=== PATIENT | female | born 1975 | race Caucasian/White ===

== ENCOUNTER 2017-11-15 10:46 | Emergency (ER) | payer OTHER | END 2017-11-15 11:35 | disposition home or self-care (01) | LOC: E/R 10:46 | DX: J02.9 Acute pharyngitis, unspecified (principal); H92.03 Otalgia, bilateral; J30.9 Allergic rhinitis, unspecified; R53.83 Other fatigue | CPT/HCPCS: 99282; Z7502 ==

== ENCOUNTER 2017-11-29 06:55 | Emergency (ER) | payer OTHER ==
[2017-11-29] MEDS: IBUPROFEN 200 MG TAB PO (07:09)
== END 2017-11-29 07:38 | disposition home or self-care (01) ==
LOC: FTE 06:55
DX: J06.9 Acute upper respiratory infection, unspecified (principal)
CPT/HCPCS: 71045; 99283

== ENCOUNTER 2019-01-01 18:17 | Emergency (ER) | payer SELFPAY, OTHER ==
[2019-01-02 00:51] LABS: URINE BLOOD (Dip) POC Negative (NEGATIVE); URINE GLUCOSE (Dip) POC Negative (NEGATIVE); URINE KETONES (Dip) POC 1+ (NEGATIVE); URINE LEUKOCYTE EST (Dip) POC Negative (NEGATIVE); URINE NITRITE (Dip) POC Negative (NEGATIVE); URINE TOTAL PROTEIN POC Negative (NEGATIVE)
[2019-01-02 01:04] LABS: ADD MAN DIFF? NO
[2019-01-02 01:06] LABS: WHITE BLOOD COUNT 5.9 10^3/ul (4.8-10.8)
[2019-01-02 01:06] LABS: BASOPHIL # 0.1 10^3/ul (0.0-0.1); BASOPHILS % 0.9 % (0.0-2.0); EOSINOPHILS # 0.2 10^3/ul (0.0-0.5); EOSINOPHILS % 3.4 % (0.0-7.0); HEMATOCRIT 31.2 % (37.0-47.0); HEMOGLOBIN 9.3 g/dl (12.0-16.0); LYMPHOCYTES # 2.2 10^3/ul (0.8-2.9); LYMPHOCYTES % 36.9 % (15.0-51.0); MEAN CORPUSCULAR HGB CONC 29.8 g/dl (32.0-37.0); MEAN PLATELET VOLUME 8.8 fl (7.4-10.4); MONOCYTE # 0.5 10^3/ul (0.3-0.9); NEUTROPHILS % 50.6 % (39.0-77.0); PLATELET COUNT 361 10^3/UL (140-415); RED BLOOD COUNT 4.05 10^6/ul (4.20-5.40); RED CELL DISTRIBUTION WIDTH 15.8 % (11.5-14.5)
[2019-01-02 01:26] LABS: ANION GAP 13 (5-13); BLOOD UREA NITROGEN 15 mg/dl (7-20); CALCIUM 8.8 mg/dl (8.4-10.2); CARBON DIOXIDE 24 mmol/L (21-31); CHLORIDE 102 mmol/L (97-110); Estimated GFR > 60 mL/min (>60); GLUCOSE 86 mg/dl (70-220); POTASSIUM 3.9 mmol/L (3.5-5.1); SODIUM 139 mmol/L (135-144)
== END 2019-01-02 02:12 | disposition home or self-care (01) ==
LOC: FTE 18:17
DX: D64.9 Anemia, unspecified (principal)
CPT/HCPCS: 36415; 80048; 81003; 81025; 85025; 99283